=== PATIENT | male | born 1990 | race Caucasian/White ===

== ENCOUNTER 2017-04-04 17:37 | Observation (INO) | payer OTHER ==
[2017-04-04 17:57] VITALS: BP 130/74; PULSE 108; RESP 20; TEMP 98.5; O2SAT 97
[2017-04-04] MEDS ORDERED: ACETAMINOPHEN/HYDROcodone 325 MG/5 MG TAB PO ONE (20:15)
[2017-04-04] MEDS ORDERED: LIDOCAINE 1%/EPINEPHrine 1:100,000 SOLN 20 ML VIAL INFIL ONE (20:15)
[2017-04-04] MEDS ORDERED: TETANUS/DIPHTHERIA TOXOID ADULT 0.5 ML VIAL IM ONE (20:15)
--- NOTE | 2017-04-04 20:15 | PD ---
HPI Chief Complaint: Laceration/Skin Injury Time Seen by Provider: 20:05 Travel History International Travel<30 days: No Contact w/Intl Traveler<30days: No Traveled to known affect area: No History of Present Illness HPI 26-year-old male presents to the emergency department for evaluation of bilateral knee lacerations. The patient states that about 1.5 hours ago he was carrying a glass table and it dropped onto his knees and broke lacerating the anterior aspects of bilateral upper knees. States that he has pain in the location of the lacerations and in his knees. Pain is aggravated with movement and palpation. Patient admits to drinking alcohol today. Denies any other injuries. Denies any numbness or tingling, weakness. Unsure of last tetanus vaccination. No other complaints. [facility] Past Medical History Medical History: Denies Significant Hx Tetanus Vaccination: Unknown Past Surgical History Surgical History: No Previous Surgery Social History Alcohol Use: Yes Tobacco Use: Yes Substance Use: Yes (marijuana ) Allergies-Medications (Allergen,Severity, Reaction): Coded Allergies: Iodine (Verified Allergy, Unknown, 04/04/17) Reported Meds & Prescriptions Reported Meds & Active Scripts Active No Active Prescriptions or Reported Medications Review of Systems Except as stated in HPI: all other systems reviewed are Neg Physical Exam Narrative GENERAL: Well-nourished and well-developed pleasant patient in no acute distress who is nontoxic appearing. SKIN: Warm and dry. 5 cm laceration to anterior right knee above the joint. 4 cm laceration to anterior left knee above the joint. HEAD: Normocephalic and atraumatic. EYES: No injection, drainage, or hyphema noted. PERRLA. EOMI. ENT: No nasal drainage noted. Oropharynx is clear. NECK: Supple and the trachea is midline. CARDIOVASCULAR: Regular rate and rhythm. RESPIRATORY: Breath sounds are equal bilaterally with no accessory muscle use, wheezing, rhonchi, or crackles. MUSCULOSKELETAL: No obvious deformities, swelling, cyanosis, or ecchymosis is present throughout the upper and lower extremities. Patient has full range of motion without any signs of neurovascular compromise. NEUROLOGICAL: Awake, alert, and oriented. Normal speech and gait. Cranial nerves are grossly intact. Data Data Last Documented VS Vital Signs Date Time Temp Pulse Resp B/P Pulse Ox O2 Delivery O2 Flow Rate FiO2 04/04/17 17:57 98.5 108 20 130/74 97 Orders Knee, Complete (4vws) (04/04/17 20:02) Knee, Complete (4vws) (04/04/17 20:02) Acetamin-Hydrocod 325-5 Mg (Milmine 5-325 (04/04/17 20:15) Tetanus/Diphtheria Tox Adult (Tetanus/Di (04/04/17 20:15) Lidocai-Epi 1%-1:100,000 Inj (Xylocaine- (04/04/17 20:15) MDM Medical Decision Making Medical Screen Exam Complete: Yes Emergency Medical Condition: Yes Differential Diagnosis Laceration versus superficial versus avulsion versus contusion Narrative Course 26-year-old male presents to the emergency department for evaluation of lacerations to the anterior knees that happened secondary to a stable following on his knees. Patient is afebrile, vital signs are stable. Lower extremities and knee joints are neurovascularly intact with no ligamentous injuries on exam. These 2 lacerations are simple and will require suture repair. We'll do x-ray imaging to rule out any acute bony abnormalities. Patient's tetanus vaccination is updated here in the ED. After laceration repair was performed the x-rays were read and resulted. The right knee x-ray is unremarkable. The left knee x-ray shows intraarticular gas. My attending physician Dr. Black will speak with orthopedic surgery and disposition the patient. Procedures Procedure Narrative LACERATION LOCATION: Right anterior knee LENGTH: 5 cm NUMBER OF STITCHES/JERALD: 14 sutures REPAIR: The area of the laceration was prepped with Betadine and sterilely draped. The laceration was infiltrated with 1% lidocaine with epinephrine. The wound was copiously irrigated and explored without evidence of foreign body , tendon injury or neurovascular injury. The wound was closed using 3. 0 Ethilon. This was a single layer repair. A sterile dressing was applied. The patient was advised to keep the dressing clean and dry. Patient tolerated the procedure well. LACERATION LOCATION: Left anterior medial knee LENGTH: 4 cm NUMBER OF STITCHES/JERALD: 11 sutures REPAIR: The area of the laceration was prepped with Betadine and sterilely draped. The laceration was infiltrated with 1% lidocaine with epinephrine. The wound was copiously irrigated and explored without evidence of foreign body , tendon injury or neurovascular injury. The wound was closed using 3. 0 Ethilon. This was a single layer repair. A sterile dressing was applied. The patient was advised to keep the dressing clean and dry. Patient tolerated the procedure well. LACERATION LOCATION: Left medial thigh LENGTH: 1.5 cm NUMBER OF STITCHES/JERALD: 3 sutures REPAIR: The area of the laceration was prepped with Betadine and sterilely draped. The laceration was infiltrated with 1% lidocaine with epinephrine. The wound was copiously irrigated and explored without evidence of foreign body , tendon injury or neurovascular injury. The wound was closed using 3. 0 Ethilon. This was a single layer repair. A sterile dressing was applied. The patient was advised to keep the dressing clean and dry. Patient tolerated the procedure well. Scripts No Active Prescriptions or Reported Meds Rebekah Finch Apr 04, 2017 20:15
--- NOTE | 2017-04-04 20:47 | RADRPT ---
EXAM DATE/TIME: 04/04/2017 20:25 [facility] COMPARISON: No previous studies available for comparison. INDICATIONS : Anterior lacerations of bilateral knees at the level of the apex from a glass table. MEDICAL HISTORY : None. SURGICAL HISTORY : None. ENCOUNTER: Initial ACUITY: 1 day PAIN SCORE: 10/10 LOCATION: Bilateral knees FINDINGS: AP, lateral and oblique views of the left knee were obtained and demonstrate subcutaneous gas and int ra-articular gas noted in the medial and lateral compartments. There is a small amount of gas also pr esent in suprapatellar bursa as well. There is no acute fracture or malalignment. No radiopaque forei gn bodies identified. There is mild soft tissue swelling. CONCLUSION: Soft tissue laceration with intra-articular gas. Ramesh Yancey MD on April 04, 2017 at 20:44 Board Certified Radiologist. This report was verified electronically.
--- NOTE | 2017-04-04 20:48 | RADRPT ---
EXAM DATE/TIME: 04/04/2017 20:29 [facility] COMPARISON: No previous studies available for comparison. INDICATIONS : Anterior lacerations of bilateral knees at the level of the apex from a glass table. MEDICAL HISTORY : None. SURGICAL HISTORY : None. ENCOUNTER: Initial ACUITY: 1 day PAIN SCORE: 10/10 LOCATION: Bilateral knees FINDINGS: Four view examination of the right knee demonstrates no evidence of fracture or dislocation. Bony mi neralization is normal. The articular surfaces are intact. There is soft tissue swelling and small defect along the soft tissues anterior to the patella. No definite radiopaque foreign body is identif ied. Overlying bandages. The suprapatellar soft tissues have a normal configuration. CONCLUSION: Soft tissue laceration and swelling with no underlying bony abnormality. Ramesh Yancey MD on April 04, 2017 at 20:46 Board Certified Radiologist. This report was verified electronically.
[2017-04-04] MEDS ORDERED: GENTAMICIN 80 MG PREMIX 100 ML IV ONE (22:00)
[2017-04-04] MEDS ORDERED: ceFAZolin 2 GM PREMIX 50 ML IV ONE (22:00)
--- NOTE | 2017-04-04 22:07 | PD ---
Data Data Last Documented VS Vital Signs Date Time Temp Pulse Resp B/P Pulse Ox O2 Delivery O2 Flow Rate FiO2 04/04/17 22:31 100 Room Air 04/04/17 17:57 98.5 108 20 130/74 Orders Knee, Complete (4vws) (04/04/17 20:02) Knee, Complete (4vws) (04/04/17 20:02) Acetamin-Hydrocod 325-5 Mg (Ringle 5-325 (04/04/17 20:15) Tetanus/Diphtheria Tox Adult (Tetanus/Di (04/04/17 20:15) Lidocai-Epi 1%-1:100,000 Inj (Xylocaine- (04/04/17 20:15) Complete Blood Count With Diff (04/04/17 21:57) Comprehensive Metabolic Panel (04/04/17 21:57) Prothrombin Time / Inr (Pt) (04/04/17 21:57) Act Partial Throm Time (Ptt) (04/04/17 21:57) Iv Access Insert/Monitor (04/04/17 21:57) Ecg Monitoring (04/04/17 21:57) Oximetry (04/04/17 21:57) Sodium Chloride 0.9% Flush (Ns Flush) (04/04/17 22:00) Cefazolin 2 Gm Premix (Ancef 2 Gm Premix (04/04/17 22:00) Gentamicin 80 Mg Premix (Gentamicin 80 M (04/04/17 22:00) Morphine Inj (Morphine Inj) (04/04/17 22:15) Labs Laboratory Tests Test 04/04/17 22:10 White Blood Count 13.6 TH/MM3 Red Blood Count 5.21 MIL/MM3 Hemoglobin 15.3 GM/DL Hematocrit 44.0 % Mean Corpuscular Volume 84.4 FL Mean Corpuscular Hemoglobin 29.3 PG Mean Corpuscular Hemoglobin 34.7 % Concent Red Cell Distribution Width 12.9 % Platelet Count 262 TH/MM3 Mean Platelet Volume 9.7 FL Neutrophils (%) (Auto) 78.0 % Lymphocytes (%) (Auto) 14.2 % Monocytes (%) (Auto) 7.0 % Eosinophils (%) (Auto) 0.4 % Basophils (%) (Auto) 0.4 % Neutrophils # (Auto) 10.6 TH/MM3 Lymphocytes # (Auto) 1.9 TH/MM3 Monocytes # (Auto) 0.9 TH/MM3 Eosinophils # (Auto) 0.1 TH/MM3 Basophils # (Auto) 0.0 TH/MM3 CBC Comment DIFF FINAL Differential Comment Prothrombin Time 10.2 SEC Prothromb Time International 0.9 RATIO Ratio Activated Partial 25.3 SEC Thromboplast Time MDM Supervised Visit with NICOLE: Yes Narrative Course The patient was initially evaluated by my PA. See her note for further details. Briefly this is a 26-year-old male who sustained to anterior knee lacerations after a glass table that he was carrying fell to the ground and shattered. X- rays of bilateral knees were ordered by my PA to assess for possible foreign body. She did not see any foreign bodies and elected to repair both knee lacerations. After the lacerations were repaired, x-ray reading of the left knee was resulted and shows intra-articular free air. At this point I was notified about the patient. I removed the sutures from the large laceration over the left knee, and using a sterile glove I insert my finger into the laceration which indeed extends into the knee joint. Case was discussed with on -call orthopedist Dr. Ya. Patient will be started on IV antibiotics and admitted to the medical service and will be evaluated by the orthopedic surgery team tomorrow morning. We will also be copiously irrigated with 2 L of normal saline and placed in a knee immobilizer. Patient and the patient's family were made aware of this plan. Case discussed with hospitalist Dr. Torres who will admit the patient to his service for orthopedic evaluation. Diagnosis Primary Impression: Laceration of knee, complicated Qualified Code: S81.012A - Laceration of knee, complicated, left, initial encounter Additional Impression: Laceration of right knee Qualified Code: S81.011A - Laceration of right knee, initial encounter Admitting Information Admitting Physician Requests: Observation Scripts No Active Prescriptions or Reported Meds Zeeshan Black MD Apr 04, 2017 22:07
[2017-04-04] MEDS ORDERED: MORPHINE SULFATE 4 MG/ML INJ IV PUSH ONE (22:15)
[2017-04-04 22:23] LABS: AUTOMATED NEUTROPHIL # 10.6 TH/MM3 (1.8-7.7); BASOPHIL % 0.4 % (0.0-2.0); EOSINOPHIL # 0.1 TH/MM3 (0-0.4); EOSINOPHIL % 0.4 % (0.0-4.0); HEMO FLAGS DIFF FINAL; LYMPH % 14.2 % (9.0-44.0); LYMPHOCYTE # 1.9 TH/MM3 (1.0-4.8); MEAN CELL VOLUME 84.4 FL (80.0-100.0); MEAN CORPUSCULAR HEMOGLOBIN 29.3 PG (27.0-34.0); MEAN CORPUSCULAR HGB CONC 34.7 % (32.0-36.0); PLATELET COUNT 262 TH/MM3 (150-450); RED BLOOD COUNT 5.21 MIL/MM3 (4.50-5.90); RED CELL DISTRIBUTION WIDTH 12.9 % (11.6-17.2); WHITE BLOOD COUNT 13.6 TH/MM3 (4.0-11.0)
[2017-04-04 22:31] VITALS: O2SAT 100
[2017-04-04 22:32] LABS: APTT (PATIENT) 25.3 SEC (24.3-30.1); INTERNATIONAL NORMALIZED RATIO 0.9 RATIO; PROTHROMBIN TIME - PATIENT 10.2 SEC (9.8-11.6)
[2017-04-04 22:38] LABS: ALT (GPT) 25 U/L (12-78); ANION GAP 11 MEQ/L (5-15); AST (GOT) 19 U/L (15-37); BICARBONATE 24.5 MEQ/L (21.0-32.0); BLOOD UREA NITROGEN 20 MG/DL (7-18); CHLORIDE 105 MEQ/L (98-107); GLOMERULAR FILTRATION RATE 63 ML/MIN (>89); POTASSIUM 3.8 MEQ/L (3.5-5.1); SODIUM (NA) 140 MEQ/L (136-145)
[2017-04-04 22:40] LABS: ALKALINE PHOSPHATASE 66 U/L (45-117); TOTAL BILIRUBIN ADULT 0.5 MG/DL (0.2-1.0)
[2017-04-04] MEDS ORDERED: MAGNESIUM HYDROXIDE SUSP 30 ML CUP PO PRN (23:00)
[2017-04-04] MEDS ORDERED: MORPHINE SULFATE 4 MG/ML INJ IV PRN (23:00)
[2017-04-04] MEDS ORDERED: BISACODYL 10 MG SUPP RECTAL PRN (23:00)
[2017-04-04] MEDS ORDERED: ONDANSETRON HCL 4 MG/2 ML VIAL IVP PRN (23:00)
[2017-04-04] MEDS ORDERED: LACTULOSE SYRUP 20 GM/30 ML CUP PO PRN (23:00)
[2017-04-04] MEDS ORDERED: NALOXONE HCL 0.4 MG/ML AMP IV PRN (23:00)
[2017-04-04] MEDS ORDERED: SENNOSIDES 8.6 MG TAB PO PRN (23:00)
[2017-04-04] MEDS ORDERED: ACETAMINOPHEN 325 MG TAB PO PRN (23:00)
[2017-04-04] MEDS ORDERED: Gentamicin Consult Pharmacy 1 EA OTHER SCH (23:30)
--- NOTE | 2017-04-04 23:30 | HHI.HP ---
[facility] No Primary Care Physician Admission Diagnosis left knee laceration with intra-articular extension Diagnoses: (1) Laceration of knee, complicated (2) Laceration of right knee Chief Complaint: Laceration Travel History International Travel<30 Days: No Contact w/Intl Traveler <30 Da: No Traveled to Known Affected Are: No History of Present Illness The patient is a 26 year old male who presented to the ER for evaluation of lacerations to both knees. He states that he was carrying a glass table top when he dropped it and it shattered. He ended up with lacerations on both knees. No other complaints at this time. Review of Systems Constitutional: DENIES: Fever, Chills, Night Sweats Eyes: DENIES: Blurred vision, Vision loss Ears, nose, mouth, throat: DENIES: Hearing loss Respiratory: DENIES: Cough, Wheezing, Sputum production, Shortness of breath Cardiovascular: DENIES: Chest pain, Palpitations, Dyspnea on Exertion, Lower Extremity Edema Gastrointestinal: DENIES: Abdominal pain, Constipation, Diarrhea, Nausea, Vomiting Genitourinary: DENIES: Urinary frequency, Urinary incontinence, Urgency, Hematuria, Dysuria, Nocturia Musculoskeletal: DENIES: Joint pain, Muscle aches Integumentary: DENIES: Pruritus, Rash Hematologic/lymphatic: DENIES: Bruising Neurologic: DENIES: Headache Past Family Social History Past Medical History None Past Surgical History None Reported Medications None Allergies: Coded Allergies: Iodine (Verified Allergy, Unknown, 04/04/17) Family History None per patient and his father. Social History Occasional cigarette smoking. Admits to smoking marijuana. Drinks 6 beers per day. Physical Exam Vital Signs Vital Signs Date Time Temp Pulse Resp B/P Pulse Ox O2 Delivery O2 Flow Rate FiO2 04/04/17 22:31 100 Room Air 04/04/17 17:57 98.5 108 20 130/74 97 Physical Exam GENERAL: Well-nourished, well-developed male in no acute distress. HEENT: Normocephalic, atraumatic. Pupils equal, round and reactive. Extraocular movements intact. No scleral icterus. No injection or drainage. Oropharynx is clear. Mucous membranes are moist. CARDIOVASCULAR: Regular rate and rhythm without murmurs, gallops, or rubs. RESPIRATORY: Clear to auscultation. No wheezes, rales, or rhonchi. Breathing is non-labored. GASTROINTESTINAL: Abdomen soft, non-tender, nondistended. EXTREMITIES: No lower extremity edema. No calf tenderness. Left leg in an immobilizer splint. Right knee laceration sutured. PSYCH: Alert and oriented x 3. Laboratory Laboratory Tests Test 04/04/17 22:10 White Blood Count 13.6 Red Blood Count 5.21 Hemoglobin 15.3 Hematocrit 44.0 Mean Corpuscular Volume 84.4 Mean Corpuscular Hemoglobin 29.3 Mean Corpuscular Hemoglobin 34.7 Concent Red Cell Distribution Width 12.9 Platelet Count 262 Mean Platelet Volume 9.7 Neutrophils (%) (Auto) 78.0 Lymphocytes (%) (Auto) 14.2 Monocytes (%) (Auto) 7.0 Eosinophils (%) (Auto) 0.4 Basophils (%) (Auto) 0.4 Neutrophils # (Auto) 10.6 Lymphocytes # (Auto) 1.9 Monocytes # (Auto) 0.9 Eosinophils # (Auto) 0.1 Basophils # (Auto) 0.0 CBC Comment DIFF FINAL Differential Comment Prothrombin Time 10.2 Prothromb Time International 0.9 Ratio Activated Partial 25.3 Thromboplast Time Sodium Level 140 Potassium Level 3.8 Chloride Level 105 Carbon Dioxide Level 24.5 Anion Gap 11 Blood Urea Nitrogen 20 Creatinine 1.38 Estimat Glomerular Filtration 63 Rate Random Glucose 103 Calcium Level 9.2 Total Bilirubin 0.5 Aspartate Amino Transf 19 (AST/SGOT) Alanine Aminotransferase 25 (ALT/SGPT) Alkaline Phosphatase 66 Total Protein 8.0 Albumin 4.5 Result Diagram: 04/04/17 2210 04/04/172209 Imaging Last Impressions Knee X-Ray 04/04/172001 Signed Impressions: Service Date/Time: Tuesday, April 04, 2017 20:25 - CONCLUSION: Soft tissue laceration with intra-articular gas. Ramseh Yancey MD Assessment and Plan Assessment and Plan 1. Bilateral knee lacerations: Patient has a comp related laceration to the left knee with intra-articular air. Orthopedic surgery consultation has been requested. The ER physician spoke with the orthopedic surgeon on-call. Pain control, empiric antibiotics. Problem Qualifiers (1) Laceration of knee, complicated: Qualified Code: S81.012A - Laceration of knee, complicated, left, initial encounter (2) Laceration of right knee: Qualified Code: S81.011A - Laceration of right knee, initial encounter Santi Torres MD Apr 04, 2017 23:29
[2017-04-05] MEDS: NS + KCL 20 MEQ INJ 1,000 ML IV SCH ×2 (00:23→09:00)
[2017-04-05 00:45] VITALS: BP 133/77; PULSE 96; RESP 19; TEMP 99.2; O2SAT 99
[2017-04-05] MEDS: MORPHINE SULFATE 4 MG/ML INJ IV PRN ×2 (02:46→07:08)
[2017-04-05 04:27] VITALS: BP 129/73; PULSE 88; RESP 16; TEMP 97.9; O2SAT 99
[2017-04-05] MEDS: SODIUM CHLORIDE 0.9% FLUSH 10 ML FLUSH IV FLUSH PRN (07:09)
[2017-04-05 07:18] VITALS: BP 120/81; PULSE 82; RESP 16; TEMP 98.6; O2SAT 98
--- NOTE | 2017-04-05 08:56 | HHI.PR ---
Subjective Remarks Follow-up for left knee intra-articular laceration. Reportedly the patient is going to the OR today. The patient complains of throbbing pain in both of his knees. He states the left is worse than the right. He reports the pain medicine helps. Objective Vitals Vital Signs Date Time Temp Pulse Resp B/P Pulse Ox O2 Delivery O2 Flow Rate FiO2 04/05/17 07:18 98.6 82 16 120/81 98 04/05/17 04:27 97.9 88 16 129/73 04/05/17 04:27 99 04/05/17 00:45 99.2 96 19 133/77 99 04/04/17 22:31 100 Room Air 04/04/17 17:57 98.5 108 20 130/74 97 Result Diagram: 04/04/17220904/04/172209 Imaging Last Impressions Knee X-Ray 04/04/172001 Signed Impressions: Service Date/Time: Tuesday, April 04, 2017 20:25 - CONCLUSION: Soft tissue laceration with intra-articular gas. Ramesh Yancey MD Objective Remarks GENERAL: Well-developed well-nourished. In no acute distress. SKIN: Warm and dry. Right knee lacerations repaired. HEENT: Normocephalic. Pupils equal and round. Mucous membranes pink and moist. CARDIOVASCULAR: Regular rate and rhythm. No murmur appreciated. RESPIRATORY: No accessory muscle use. Clear to auscultation. Breath sounds equal bilaterally. GASTROINTESTINAL: Abdomen soft, non-tender, nondistended. Bowel sounds x4. MUSCULOSKELETAL: Left knee immobilized. No clubbing or cyanosis. No edema. NEUROLOGICAL: Awake and alert. No focal neurological deficits. Moves upper and lower extremities spontaneously. Normal speech. PSYCHIATRIC: Appropriate mood and affect; insight and judgment normal. A/P Problem List: (1) Laceration of knee, complicated ICD Code: S81.019A Status: Acute (2) Laceration of right knee ICD Code: S81.011A Status: Acute Assessment and Plan 26-year-old male with no significant past medical history who presented with bilateral knee lacerations after he dropped and broke a glass table Intra-articular laceration left knee: Personally reviewed left knee x-ray that shows lateral laceration with gas. Orthopedics was consulted, appreciate input. Continue pain control with IV morphine for now. Continue empiric antibiotics for now with cefazolin and gentamicin. Diet and activity per orthopedics. Elevated creatinine: Creatinine 1.38, no previous labs for comparison, possible TIERRA. Repeat BMP pending. Continue IVF. DVT prophylaxis: Per orthopedics Discharge Planning Follow-up orthopedic recommendations. Problem Qualifiers (1) Laceration of knee, complicated: Qualified Code: S81.012A - Laceration of knee, complicated, left, initial encounter (2) Laceration of right knee: Qualified Code: S81.011A - Laceration of right knee, initial encounter Brown Omer Apr 05, 2017 08:56
[2017-04-05 09:01] LABS: BICARBONATE 29.5 MEQ/L (21.0-32.0); POTASSIUM 4.2 MEQ/L (3.5-5.1)
[2017-04-05] MEDS ORDERED: ACETAMINOPHEN 1000 MG/100 ML VIAL IV ONE (10:24)
[2017-04-05] MEDS ORDERED: MIDAZOLAM HCL 2 MG/2 ML VIAL ONE (10:24)
[2017-04-05] MEDS ORDERED: GENTAMICIN SULFATE 80 MG/2 ML VIAL ONE (10:49)
[2017-04-05] MEDS ORDERED: VANCOMYCIN HCL 1000 MG VIAL ONE (10:49)
[2017-04-05] MEDS ORDERED: ceFAZolin INJ 1,000 MG VIAL IV ONE (11:46)
[2017-04-05] MEDS ORDERED: KETOROLAC TROMETHAMINE 60 MG/2 ML (IM) VIAL IM ONE (12:00)
[2017-04-05] MEDS ORDERED: LACTATED RINGER'S 1000 ML INJ 1,000 ML IV ONE (12:00)
[2017-04-05] MEDS ORDERED: ONDANSETRON HCL 4 MG/2 ML VIAL IV PUSH ONE (12:00)
[2017-04-05] MEDS ORDERED: PROPOFOL 200 MG/20 ML AMP IV ONE (12:00)
--- NOTE | 2017-04-05 12:56 | MB ---
cc: MANNIE REHMAN DATE OF CONSULTATION: 04/04/2017 REASON FOR CONSULTATION Bilateral knee lacerations. HISTORY OF PRESENT ILLNESS The patient is a 26-year-old male who was taken to the [facility] Emergency Room yesterday after he sustained severe lacerations of both knees. He is carrying a heavy glass table when it dropped, it shattered and he sustained multiple lacerations to both of his knees. He had significant pain and bleeding associated with the injuries. Upon evaluation by the emergency room physician there was noted to the gas in the soft tissues and also in the joint, especially on the left side suggestive of an open knee joint laceration. I was consulted. The patient was admitted to the medical service. He was placed on IV antibiotics. When I evaluate the patient today he still complains of moderate pain in both of his knees. No numbness or tingling. No referred symptoms. PAST MEDICAL HISTORY Negative. PAST SURGICAL HISTORY Negative. ALLERGIES No allergies. MEDICATIONS No medications. FAMILY HISTORY The family history is reviewed and noncontributory. SOCIAL HISTORY Occasionally smokes cigarettes. He drinks six beers per day. He does smoke marijuana recreationally. PHYSICAL EXAMINATION VITAL SIGNS: Temperature 98, pulse 100, respirations 20, blood pressure 130/70. GENERAL: The patient is a well-nourished male awake, alert, in no distress, lying in bed. HEENT: Normocephalic, atraumatic. Pupils are round. Extraocular muscles intact. NECK: Supple. LUNGS: Clear. HEART: Regular rate and rhythm. ABDOMEN: Soft, nontender. EXTREMITIES: There are traumatic transverse lacerations over both knees which have sutures from the emergency room. The patient can flex his ankles and toes distlally. He has pain with any passive motion of both knees. Sensation is intact distally. IMPRESSION A 26-year-old male who sustained traumatic lacerations to both of his knees when he dropped a glass table. The left knee joint has air in the soft tissues consistent with an open knee joint laceration. PLAN I discussed the diagnosis with the patient about the treatment options, option of going to the operating room to perform a formal irrigation and debridement and exploration of both wounds as well as surgical repair is indicated. The patient was counseled as to the risks, benefits and alternatives to the above-named proposed surgical procedure which includes but is not limited to anesthesia, bleeding, infection, damage to nerves and blood vessels, pain, stiffness and blood clots. The patient has appropriate questions. He is in favor of proceeding with surgery. Written consent has been obtained. The surgical sites of the right and left knee have been marked. MD MATT Ellis/MAYA /12:35 PM /12:42 PM
[2017-04-05] MEDS ORDERED: DO NOT ADM ANY ANTICOAGULANT DRUGS PRN (12:57)
[2017-04-05] MEDS: LACTATED RINGER'S 1000 ML INJ 1,000 ML IV SCH (13:00)
[2017-04-05] MEDS ORDERED: *MEPERIDINE 25 MG INJ VIAL PERIprocedural Use ONLY ONE (13:04)
--- NOTE | 2017-04-05 13:06 | MP ---
cc: MANNIE REHMAN DATE OF SURGERY 04/05/2017 PREOPERATIVE DIAGNOSES 1. Left knee traumatic laceration with open knee joint and patellar tendon laceration. 2. Right knee traumatic laceration with open knee joint and quadriceps tendon laceration. POSTOPERATIVE DIAGNOSES 1. Left knee traumatic laceration with open knee joint and patellar tendon laceration. 2. Right knee traumatic laceration with open knee joint and quadriceps tendon laceration. PROCEDURES 1. Left knee irrigation and debridement, repair of patella tendon, closure of knee joint capsule. 2. Right knee irrigation and debridement, repair of quadriceps tendon laceration, closure of knee joint capsule. SURGEON Dr. Mannie Rehman ANESTHESIA General. ESTIMATED BLOOD LOSS 100 cc TOURNIQUET TIME 0 minutes. COMPLICATIONS None. JUSTIFICATION The patient is a 26-year male who was carrying a heavy glass table where the table apparently fell and broke and shattered causing severe, deep lacerations to both his knees. He was taken to the [facility] Emergency Room with the Orthopedic Surgery was counseled. The patient was counseled as to his risks, benefits and alternatives to the above-named proposed surgical procedure. He wished to proceed with surgery. DETAILS OF THE PROCEDURE Written consent was obtained. The patient was identified by name, taken to the operating room, placed supine on operating room table. General anesthesia was administered as well as 1 gram of IV Ancef and 1 gram of IV vancomycin. The left and right lower extremities were then prepped and draped using isopropyl alcohol, Hibiclens solution and Chloraprep solution. Attention was first turned to the left lower extremity where the transverse laceration was extended in longitudinal fashion both proximally and distally. There was evidence of a laceration of the patella tendon and also laceration of the medial retinaculum that did that did open and extend into the knee joint itself. A 10 blade scalpel was used for perform extensive debris to include skin, subcutaneous tissue, muscle and tendon down to the level of the bone. The knee joint itself was irrigated with 3 liters of sterile saline pulse lavage antibiotic impregnated solution. The patella tendon laceration was then primarily repaired with #1 Vicryl suture. The capsule was repaired with #1 Vicryl suture, the subcutaneous layer with 2-0 Vicryl sutures and the skin was closed with 3-0 nylon. Attention was then turned to the right knee where the traumatic laceration was extended in a transverse pattern to allow exposure. Extensive debridement was performed to include skin, subcutaneous tissue, muscle and tendon down to the level of the bone. There was evidence of a transverse laceration along the superior aspect of the quadriceps tendon as it inserts into the patella. A #1 Vicryl suture was used for primary repair of the quadriceps tendon laceration. This laceration did also go into the knee joint. The knee joint was then thoroughly irrigated with sterile saline pulse lavage antibiotic impregnated solution. After repair of the quadriceps tendon and irrigation and debridement the subcutaneous layer was closed with 2-0 Vicryl suture. The skin was closed with 3-0 nylon. Sterile dressings were applied on the right and left knee. No intraoperative complications were noted. Mannie eRhman MD JWM/SSB /12:37 PM /12:58 PM
[2017-04-05] MEDS ORDERED: *morphine SULFATE 8 MG/ML PERIprocedure ONLY ONE (13:19)
[2017-04-05] MEDS ORDERED: ACETAMINOPHEN/HYDROcodone 325 MG/7.5 MG TAB PO PRN (13:30)
[2017-04-05] MEDS ORDERED: MORPHINE SULFATE 8 MG/ML INJ IV PUSH PRN (13:30)
[2017-04-05] MEDS ORDERED: ONDANSETRON HCL 4 MG/2 ML VIAL IV PUSH PRN (13:30)
[2017-04-05] MEDS ORDERED: fentaNYL CITRATE 250 MCG/5 ML AMP ONE (14:49)
[2017-04-05 18:05] VITALS: BP 146/87; PULSE 79; RESP 16; TEMP 96.4; O2SAT 100
[2017-04-05 19:45] VITALS: BP 145/84; PULSE 91; RESP 16; TEMP 96.1; O2SAT 99
[2017-04-06] VITALS (7 sets, daily range): BP systolic 113–137; BP diastolic 50–73; PULSE 68–100; RESP 16–18; TEMP 96.5–98.5; O2SAT 97–100
[2017-04-06] MEDS: LACTATED RINGER'S 1000 ML INJ 1,000 ML IV SCH ×2 (04:45→15:40)
--- NOTE | 2017-04-06 09:21 | PD.ORT.PN ---
Subjective Post Op Day #: 1 Subjective Remarks knees painful Objective Vitals Vital Signs Date Time Temp Pulse Resp B/P Pulse Ox O2 Delivery O2 Flow Rate FiO2 04/06/17 08:00 96.7 68 18 113/50 99 04/06/17 04:20 96.5 78 16 117/69 98 04/06/17 00:00 97.4 87 16 137/71 97 04/05/17 21:02 18 04/05/17 19:45 96.1 91 16 145/84 99 04/05/17 18:05 96.4 79 16 146/87 100 04/05/17 17:41 98.3 76 14 128/65 96 Room Air 04/05/17 17:00 75 16 124/64 97 Room Air 04/05/17 16:00 80 14 133/77 96 Room Air 04/05/17 15:00 79 12 133/73 95 Room Air 04/05/17 14:30 76 13 125/83 95 Room Air 04/05/17 14:00 82 12 131/78 96 Room Air 04/05/17 13:45 69 13 138/80 98 Room Air 04/05/17 13:30 97.6 90 19 139/88 98 Room Air 04/05/17 13:15 82 13 143/82 99 Room Air 04/05/17 13:00 84 14 149/84 99 Room Air 04/05/17 12:49 97.7 79 15 128/72 98 Room Air I/O 04/05/17 04/05/17 04/05/17 04/06/17 04/06/17 04/06/17 07:00 15:00 23:00 07:00 15:00 23:00 Intake Total 1010 ml 1423 ml 1097 ml Output Total 625 ml 1450 ml 500 ml Balance 385 ml -27 ml 597 ml Intake Oral 10 ml 700 ml 480 ml IV Total 723 ml 617 ml Other 1000 ml Output Urine Total 525 ml 1450 ml 500 ml Estimated Blood Loss 100 ml # Bowel Movements 0 0 Result Diagram: 04/04/17 2210 04/05/17 0656 Objective Remarks in bed, nad R knee: sutures intact, no erythema or drainage, minimal swelling L knee: sutures intact, slight bloody drainage, minimal swelling neg homans nvi Assessment & Plan Ortho Post Op Day #: 1 Problem List: Assessment and Plan s/p I&D L knee joint with wound closure, I&D R knee with wound closure protected WB with crutches gentle ROM Bilat knees pain control cleared for d/c by ortho when pain tolerable f/up dr lamas 2 weeks Obed Harry Apr 06, 2017 09:21
[2017-04-06] MEDS: SODIUM CHLORIDE 0.9% FLUSH 10 ML FLUSH IV FLUSH PRN (09:40)
[2017-04-06] MEDS ORDERED: ACETAMINOPHEN/HYDROcodone 325 MG/5 MG TAB PO PRN (09:45)
[2017-04-06] MEDS ORDERED: WALKER WHEELS/F1 MIS (10:15)
[2017-04-06] MEDS ORDERED: HYDR-3288 PO (10:15)
[2017-04-06] MEDS ORDERED: CEPH-460 PO (10:15)
--- NOTE | 2017-04-06 10:20 | HHI.PR ---
Subjective Remarks Follow-up for bilateral complex knee lacerations. The patient is seen working with PT today. He was able to ambulate to the restroom with a walker. He wants to continue to use a walker and crutches while he heals up. He does complain of significant bilateral knee pain and inflammation, but wants to be on [place] and nothing stronger. He plans to go home with his girlfriend. Objective Vitals Vital Signs Date Time Temp Pulse Resp B/P Pulse Ox O2 Delivery O2 Flow Rate FiO2 04/06/17 08:00 96.7 68 18 113/50 99 04/06/17 04:20 96.5 78 16 117/69 98 04/06/17 00:00 97.4 87 16 137/71 97 04/05/17 21:02 18 04/05/17 19:45 96.1 91 16 145/84 99 04/05/17 18:05 96.4 79 16 146/87 100 04/05/17 17:41 98.3 76 14 128/65 96 Room Air 04/05/17 17:00 75 16 124/64 97 Room Air 04/05/17 16:00 80 14 133/77 96 Room Air 04/05/17 15:00 79 12 133/73 95 Room Air 04/05/17 14:30 76 13 125/83 95 Room Air 04/05/17 14:00 82 12 131/78 96 Room Air 04/05/17 13:45 69 13 138/80 98 Room Air 04/05/17 13:30 97.6 90 19 139/88 98 Room Air 04/05/17 13:15 82 13 143/82 99 Room Air 04/05/17 13:00 84 14 149/84 99 Room Air 04/05/17 12:49 97.7 79 15 128/72 98 Room Air I/O 04/05/17 04/05/17 04/05/17 04/06/17 04/06/17 04/06/17 07:00 15:00 23:00 07:00 15:00 23:00 Intake Total 1010 ml 1423 ml 1097 ml Output Total 625 ml 1450 ml 500 ml Balance 385 ml -27 ml 597 ml Intake Oral 10 ml 700 ml 480 ml IV Total 723 ml 617 ml Other 1000 ml Output Urine Total 525 ml 1450 ml 500 ml Estimated Blood Loss 100 ml # Bowel Movements 0 0 Result Diagram: 04/04/17 2210 04/05/17 0656 Imaging Last Impressions Knee X-Ray 04/04/172001 Signed Impressions: Service Date/Time: Tuesday, April 04, 2017 20:25 - CONCLUSION: Soft tissue laceration with intra-articular gas. Ramesh Yancey MD Objective Remarks GENERAL: Well-developed well-nourished. In no acute distress. SKIN: Warm and dry. The lateral knees as below. HEENT: Normocephalic. Pupils equal and round. Mucous membranes pink and moist. CARDIOVASCULAR: Regular rate and rhythm. No murmur appreciated. RESPIRATORY: No accessory muscle use. Clear to auscultation. Breath sounds equal bilaterally. GASTROINTESTINAL: Abdomen soft, non-tender, nondistended. Bowel sounds x4. MUSCULOSKELETAL: Bilateral knees with clean surgical dressings. No clubbing or cyanosis. No edema. NEUROLOGICAL: Awake and alert. No focal neurological deficits. Moves upper and lower extremities spontaneously. Normal speech. PSYCHIATRIC: Appropriate mood and affect; insight and judgment normal. A/P Problem List: (1) Laceration of knee, complicated ICD Code: S81.019A Status: Acute (2) Laceration of right knee ICD Code: S81.011A Status: Acute Assessment and Plan 26-year-old male with no significant past medical history who presented with bilateral knee lacerations after he dropped and broke a glass table Intra-articular laceration bilateral knees: Left knee x-ray that shows lateral laceration with gas. Orthopedics was consulted, performed operative repair of tendon laceration and intra-articular debridement in the OR 04/05. [place] for pain control per orthopedics. He received empiric IV antibiotics, continue on course of oral Keflex per orthopedics. Activity per orthopedics, follow up as outpatient. Discussed with physical therapist, no PT for now, continue walker and crutches. Elevated creatinine: Creatinine 1.38, no previous labs for comparison, possible TIERRA due to dehydration at admission. Received IVF. Repeat BMP shows improvement in creatinine. Discharge Planning Cleared by orthopedics for discharge. Discharge patient to home Condition on discharge: Improved Regular Diet as tolerated Activity: Gentle ROM bilateral knees. Protective weightbearing with crutches. Rx written: [place], Keflex, walker Follow-up with primary care physician and orthopedics Problem Qualifiers (1) Laceration of knee, complicated: Qualified Code: S81.012A - Laceration of knee, complicated, left, initial encounter (2) Laceration of right knee: Qualified Code: S81.011A - Laceration of right knee, initial encounter Brown Omer Apr 06, 2017 10:20
[2017-04-06] MEDS ORDERED: ACETAMINOPHEN/HYDROcodone 325 MG/7.5 MG TAB PO PRN (11:45)
[2017-04-06] MEDS: ACETAMINOPHEN/HYDROcodone 325 MG/7.5 MG TAB PO PRN ×2 (12:29→18:20)
== END 2017-04-06 18:34 | disposition home or self-care (01) ==
LOC: NEPD 17:37 → NEDA 22:39 → NEPGCP 04-05 00:27 → N06B 04-05 13:57
PROVIDERS: ADMIT Hospitalist; ATTEND Hospitalist
DX: S81.011A Laceration without foreign body, right knee, initial encounter (principal); S81.012A Laceration without foreign body, left knee, initial encounter; R79.89 Other specified abnormal findings of blood chemistry; Z23 Encounter for immunization; F17.210 Nicotine dependence, cigarettes, uncomplicated; W25.XXXA Contact with sharp glass, initial encounter; F12.90 Cannabis use, unspecified, uncomplicated; S76.122A Laceration of left quadriceps muscle, fascia and tendon, initial encounter; S76.121A Laceration of right quadriceps muscle, fascia and tendon, initial encounter
CPT/HCPCS: 01320; 12004; 27380; 27385; 73564; 80048; 80053; 85025; 85610; 85730; 90471; 90714; 96374; 96375; 97163; 99285; E0113; G0378; G8987; G8988; J0131; J0690; J1580; J1885; J2175; J2250; J2270; J2405; J3010; J3370; J3480; J7120; L1830